=== PATIENT | female | born 1945 | race Caucasian/White ===

== ENCOUNTER 2019-04-11 09:37 | Emergency (ER) | payer MEDICARE, OTHER, SELFPAY ==
[2019-04-11 09:50] VITALS: BP 138/64; PULSE 72; RESP 20; TEMP 36.6; O2SAT 99; BMI 32.3
--- NOTE | 2019-04-11 10:20 | DI.RAD.S_ITS ---
PROCEDURE: XR CHEST 2V INDICATIONS: cough TECHNIQUE: 2 views of the chest were acquired. COMPARISON: None. FINDINGS: Surgical changes and devices: There is an electronic device projecting to the left anterior chest. Lungs and pleura: Lungs are clear. No pleural effusions or pneumothorax. Mediastinum: Mediastinal contours are normal. Heart size is normal. Bones and chest wall: No suspicious bony abnormalities. Soft tissues appear unremarkable. IMPRESSION: No acute cardiopulmonary disease. Dictated by: Vince Reveles M.D. on 04/11/2019 at 10:50 Approved by: Vince Reveles M.D. on 04/11/2019 at 10:51
--- NOTE | 2019-04-11 10:44 | ED.URI ---
HPI - URI/Sore Throat General Chief Complaint: Upper Respiratory Symptoms Stated Complaint: Has A sore throat and cough Time Seen by Provider: 04/11/19 10:15 Source: patient Mode of arrival: ambulatory Limitations: no limitations History of Present Illness HPI Narrative: Patient is a 73-year-old female who presents with cough. She says it has been ongoing for about 2 weeks. She was exposed to a friend's of grand children who had runny nose and stuffy. She feels like it might be getting worse. She denies any shortness of breath or chest pain. She has no body aches fevers or chills. She continues to cough which keeps her up at night. She says it is clear. MD Complaint: cough Onset (ago): week(s) (2) Duration: intermittent Related Data Home Medications Medication Instructions Recorded Confirmed apixaban [Eliquis] 5 mg PO BID 04/11/19 04/11/19 lisinopril [Zestril] 5 mg PO DAILY 04/11/19 04/11/19 omeprazole 20 mg PO DIRECTED 04/11/19 04/11/19 Allergies Allergy/AdvReac Type Severity Reaction Status Date / Time celecoxib [From Celebrex] Allergy Verified 04/11/19 09:50 cephalexin [From Keflex] Allergy Verified 04/11/19 09:50 cyclobenzaprine Allergy Verified 04/11/19 09:50 [From Flexeril] meloxicam Allergy Verified 04/11/19 09:50 tramadol Allergy Verified 04/11/19 09:50 Review of Systems Review of Systems ROS Unobtainable: All systems reviewed & are unremarkable except as noted in HPI and below Constitutional Constitutional: Denies chills, Denies fever(s), Denies lethargy and Denies weakness Eyes Eyes: Denies change in vision, Denies eye discharge, Denies irritation and Denies loss of vision ENT Ears, Nose, Mouth, and Throat: Denies change in voice, Denies neck pain and Denies sore throat Cardiovascular Cardiovascular: Denies chest pain, Denies irregular heart rhythm, Denies lightheadedness, Denies palpitations, Denies dyspnea and Denies orthopnea Respiratory Respiratory: Reports cough, Denies pain on inspiration, Denies pain with cough, Denies dyspnea, Denies stridor and Denies wheezing Gastrointestinal Gastrointestinal: Denies abdominal pain, Denies change in bowel habits, Denies diarrhea, Denies nausea and Denies vomiting Genitourinary Genitourinary: Denies hematuria, Denies flank pain, Denies urinary incontinence and Denies urinary urgency Musculoskeletal Musculoskeletal: Denies neck pain Integumentary/Breasts Skin/Breast: Denies pruritus, Denies erythema, Denies rash and Denies wounds Neurologic Neurologic: Denies loss of vision and Denies weakness Endocrine Endocrine: Denies palpitations Allergic/Immunologic Allergic/Immunologic: Denies wheezing [facility] Medical History Atrial fibrillation (Acute) Social History Smoking Status: Never smoker Social History Smoking Status: Never smoker Exam Initial Vital Signs Initial Vital Signs: Vital Signs Temperature 97.8 F 04/11/19 09:50 Pulse Rate 72 04/11/19 09:50 Respiratory Rate 20 04/11/19 09:50 Blood Pressure 138/64 04/11/19 09:50 Pulse Oximetry 99 04/11/19 09:50 GENERAL: Alert pleasant female no acute distress HEENT: Head atraumatic,EOMI, pupils reactive, face symmetric, moist mucous membranes CARDIOVASCULAR: Regular rate and rhythm without murmurs, rubs or gallops. RESPIRATORY: Breath sounds equal bilaterally, no wheezes rales or rhonchi. Speaks in full sentences. ABDOMEN: Soft, nontender. Normoactive bowel sounds all 4 quadrants. No guarding or rebound. EXTREMITIES: Normal range of motion, no clubbing or edema. Neurovascularly intact NEUROLOGICAL: Alert and oriented x4.Normal gait and speech. SKIN: Warm, dry, no laceration, no petechiae, no rashes or lesions. Course Orders Ordered: ED Orders 04/11/19 10:20 XR chest 2V Stat Vital Signs Vital signs: Vital Signs - 8 hr 04/11/19 09:50 04/11/19 11:05 Temperature 97.8 F Pulse Rate 72 70 Respiratory Rate 20 18 Blood Pressure 138/64 130/60 Pulse Oximetry 99 98 MDM - URI/Sore Throat Imaging Data Chest x-ray: Radiologist's impression: PROCEDURE: XR CHEST 2V INDICATIONS: cough TECHNIQUE: 2 views of the chest were acquired. COMPARISON: None. FINDINGS: Surgical changes and devices: There is an electronic device projecting to the left anterior chest. Lungs and pleura: Lungs are clear. No pleural effusions or pneumothorax. Mediastinum: Mediastinal contours are normal. Heart size is normal. Bones and chest wall: No suspicious bony abnormalities. Soft tissues appear unremarkable. IMPRESSION: No acute cardiopulmonary disease. Dictated by: Vince Reveles M.D. on 04/11/2019 at 10:50 MDM Narrative Medical decision making narrative: At this time patient overall appears well he is more concerned for her immunocompromised friend. I recommend that she stay away from anyone who is immunocompromised until her symptoms clear. She is afebrile her x-ray does not show any pneumonia. Likely viral syndrome at this time Discharge Plan Departure Patient Disposition: Home Clinical Impression: Upper respiratory infection Qualifiers: URI type: unspecified viral URI Qualified Code(s): J06.9 - Acute upper respiratory infection, unspecified Discharge Date/Time: 04/11/19 11:05 Instructions: DI for Viral Upper Respiratory Infection -- Adult Activity Restrictions/Additional Instructions: *You have been diagnosed with upper respiratory infection *What to do: At this time no pneumonia is identified. This is likely viral no need for antibiotics at this time. You are still contagious and recommend that he stay away from anyone who is immunocompromised or at risk of getting infection *Continue to take medications as directed *Follow up with your primary care provider in 2-3 days *Return to ER if you should have increasing shortness of breath, fevers, body aches, decreased oral intake or any new, worsening or concerning symptoms Prescriptions: No Action omeprazole 20 mg Capsule,Delayed Release(Dr/Ec) 20 mg PO DIRECTED RF: 0 lisinopril [Zestril] 5 mg Tablet 5 mg PO DAILY RF: 0 Eliquis 5 mg Tablet 5 mg PO BID RF: 0
[2019-04-11 11:05] VITALS: BP 130/60; PULSE 70; RESP 18; O2SAT 98
== END 2019-04-11 11:05 | disposition home or self-care (01) ==
PROVIDERS: Emergency Provider Emergency Medicine
DX: J06.9 Acute upper respiratory infection, unspecified (principal)
CPT/HCPCS: 71046; 99282; 99283